=== PATIENT | male | born 1985 | race American Indian/Alaskan Native ===

== ENCOUNTER 2017-08-05 10:39 | Emergency (ER) | payer MEDICAID ==
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
[2017-08-05 11:32] VITALS: RESP 18; TEMP 98; O2SAT 98
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
[2017-08-05 13:28] VITALS: BP 125/65; PULSE 89
== END 2017-08-05 13:50 | disposition home or self-care (01) ==
LOC: ED 10:39
DX: S09.90XA Unspecified injury of head, initial encounter (principal); S99.921A Unspecified injury of right foot, initial encounter; Y04.0XXA Assault by unarmed brawl or fight, initial encounter